=== PATIENT | male | born 1960 | race Hispanic/Latino ===

== ENCOUNTER 2025-05-31 16:23 | Emergency (ER) | payer MEDICARE ==
[~2025-05-31] VITALS: Ht 165.1 cm; Wt 68.9 kg
[2025-05-31 17:20] LABS: BASOPHILS % 0.4 % (0.0-1.0); EOSINOPHILS % 3.2 % (0.0-6.0); LYMPHOCYTES % 31.1 % (18.0-39.1); MONOCYTES % 6.1 % (4.4-11.3); NEUTROPHILS % 58.8 % (38.7-80.0); RED CELL DISTRIBUTION WIDTH 12.3 % (11.7-14.4)
[2025-05-31 17:27] LABS: INR 0.93
[2025-05-31 17:32] LABS: EST GLOMERULAR FILTRATION RATE 99.0 ML/MIN (>=60)
[2025-05-31] MEDS: SODIUM CHLORIDE 0.9% 1000ML 1,000 ML IV STA ×2 (17:54→17:55)
[2025-05-31] MEDS: INSULIN REGULAR, HUMAN 100 UNIT/1 ML IV ONE (18:04)
[2025-05-31 18:10] LABS: LEUKOCYTE ESTERASE ,URINE NEGATIVE (NEGATIVE); PROTEIN,URINE DIPSTICK NEGATIVE (NEGATIVE); URINE UROBILINOGEN 0.2 mg/dL (0.2 - 1)
[2025-05-31 18:17] LABS: WBC,URINE (MAN) 0-5 /HPF (0-5)
[2025-05-31 18:53] VITALS: TEMP 98
[2025-05-31 20:43] LABS: EST GLOMERULAR FILTRATION RATE 104.0 ML/MIN (>=60)
[2025-05-31] MEDS ORDERED: METFORMIN HCL500 MG PO (21:39)
[2025-05-31 21:49] VITALS: PULSE 76; RESP 17
[2025-05-31 21:58] VITALS: BP 149/97; PULSE 70; RESP 18; TEMP 98.1; O2SAT 100
== END 2025-05-31 22:04 | disposition home or self-care (01) ==
LOC: ER 16:49
DX: E11.65 Type 2 diabetes mellitus with hyperglycemia (principal); I10 Essential (primary) hypertension
CPT/HCPCS: 36415; 71045; 80053; 81001; 82948; 83735; 84484; 85025; 85610; 85730; 93005; 99284; J7030